=== PATIENT | female | born 1995 | race Caucasian/White ===

== ENCOUNTER 2021-04-21 19:05 | Inpatient (IN) | payer BC, SELFPAY ==
[2021-04-21 19:23] VITALS: BMI 38.5
[2021-04-21 19:42] VITALS: BP 131/85; PULSE 90; TEMP 36.8
[2021-04-21 19:43] VITALS: PULSE 96; O2SAT 98
[2021-04-21] MEDS: Lactated Ringers 1,000 ML 50 ML IV (19:45)
[2021-04-21] MEDS: 0.9% Normal Saline Single 100 ML IV.SOLN. INTRA-UTER (19:55)
--- NOTE | 2021-04-21 20:00 | PCM.HP.OB ---
HPI - General General Date of Admission: 04/21/21 HPI Narrative ALISHA GONZALEZ, is a 26 F who presents at 38weeks 6days for IOL due to obesity, GDMA1. Maternal Data Information RIVKA Calculator Estimated Delivery Date Method Current WG Current Estimate 04/29/21 Manual 38w 6d PFSH PFSH Home Medications vit [id number] [ One Daily] tab PO DAILY 04/21/21 [History Last Taken 04/20/21] Allergy/AdvReac Type Severity Reaction Status Date / Time cefaclor [From [facility]] Allergy Hives Verified 04/21/21 19:47 grass pollen AdvReac Anaphylaxis Verified 04/21/21 19:47 NST FHR Rate Baby A Baseline: 125 Variability:: Moderate Accelerations:: 15 x 15 Decelerations:: None FHR Category:: Category I Uterine Activity:: None ROS Constitutional Constitutional: Reports systems reviewed and no addt'l complaints, except as documented; Denies headache(s) Eyes Eyes: Denies acute decrease in peripheral vision, blurry vision or change in vision ENT HEENT: Reports systems reviewed and no addt'l complaints, except as documented Cardiovascular Cardiovascular: Denies chest pain or dizziness Respiratory/Chest Respiratory/Chest: Denies cough, dyspnea, dyspnea on exertion, shortness of breath at rest or shortness of breath with exertion Gastrointestinal Gastrointestinal: Denies abdominal pain, diarrhea, nausea or vomiting Genitourinary Genitourinary: Denies abdominal discomfort or movement Musculoskeletal Musculoskeletal: Denies limited range of motion Integumentary Integumentary: Reports systems reviewed and no addt'l complaints, except as documented Neurologic Neurologic: Reports systems reviewed and no addt'l complaints, except as documented Psychiatric Psychiatric: Reports systems reviewed and no addt'l complaints, except as documented Endocrine Endocrinology: Reports systems reviewed and no addt'l complaints, except as documented Hematologic/Lymphatic Hematologic/Lymphatic: Reports systems reviewed and no addt'l complaints, except as documented Allergic/Immunologic Allergic/Immunologic: Reports systems reviewed and no addt'l complaints, except as documented Vital Signs Vital Signs Vital Signs: 04/21/21 19:42 04/21/21 19:43 Pulse Rate 90 96 Blood Pressure 131/85 H BP Systolic 131 BP Diastolic 85 Pulse Ox 98 Weight Weight: 211 lb Body Mass Index (BMI) 38.5 Physical Exam Narrative Wylie catheter inserted transcervically without difficulty. 30ml NS instilled, Const alert and oriented x3 General Appearance: cooperative Orientation / Consciousness: awake, oriented to person, oriented to place and oriented to time Exam Limitations: no limitations HEENT normocephalic Head and Scalp: normal to inspection, normocephalic and atraumatic Face and Sinus: normal facial exam Eyes General Eye: normal appearance of both eyes Neck full ROM Chest Chest: symmetrical chest wall rise Resp normal respiratory effort and normal air movement Auscultation: clear to auscultation bilaterally Cardio regular rate, regular rhythm, S1 normal heart sound, S2 normal heart sound, no murmurs, no rub, no gallops and no clicks GI normal to inspection, nondistended, normoactive bowel sounds and non-tender appearance of the vagina normal Bladder / Kidney Exam: no CVA tenderness Manual OB Exam: estimated gestational size large (89th percentile at 33w1d), dilated 2cm, effaced 60% and station -2 Back/Spine normal ROM Extremity normal to inspection and full ROM Skin no rashes or lesions noted Neuro oriented x3, CN's II-XII intact bilaterally and moves all extremities Sensorium / Orientation: awake, alert and oriented to person Motor Exam: clonus absent Deep Tendon Reflexes: Rt Patellar (L4): 2+ and Lt Patellar (L4): 2+ Labs Labs Labs: No Data to Display GBS negative COVID negative on04/18/21 HBsAG negative HIV negative HepC negative Rubella immune RPR negative A positive, antibody screen negative Assessment & Plan (1) GDM, class A1: (2) Obesity affecting : COMMENT: US at 37w1d 94th percentile (3) History of marijuana use: (4) abnormality in : COMMENT: suspected MCDK/obstruction. plan of care coordination note. (5) History of depression: (6) Tobacco use affecting in first trimester, antepartum: (7) Encounter for induction of labor: PLAN: 1) Admit to labor and delivery 2) IV with routine labs 3) Diabetic protocol. US at 37w1d 94th percentile 4) Wylie with PO cytotec then pitocin per policy 5) Pain management 6) GBS negative 7) COVID negative 8) collaborative physician
[2021-04-21 20:05] LABS: Absolute Lymphocyte Count 1.74 X10^3/uL (0.83-4.51); Absolute Neutrophil Count 6.8 X10^3/uL (2.0-7.7); Basophil# 0.05 X10^3/uL; Basophil% 0.5 % (0-1); Hematocrit 38.3 % (37-47); Hemoglobin 13.6 g/dL (12.0-15.0); Lymphocyte # 1.74 X10^3/ul (0.83-4.51); Mean Corp Hgb Conc 35.5 g/dL (32-36); Mean Corpuscular Hgb 31.6 pg (27.0-32.0); Mean Corpuscular Volume 88.9 fL (81-99); Mean Platelet Vol. 11.4 fl (6.2-12.0); Monocyte# 0.74 X10^3/uL; Monocyte% 7.6 % (0-10); NRBC Flagged by Analyzer 0 % (0-5); Neutrophil # 6.83 X10^3/uL (2.7-7.7); Neutrophil % 70.6 % (47-70); Platelet Count 209 K/mm3 (150-450); RBC Distribution Width CV 12.4 % (11.6-14.6); RBC Distribution Width SD 40.2 fl (35.1-43.9); Red Blood Count 4.31 M/mm3 (4.2-5.4); White Blood Count 9.7 K/mm3 (4.4-11.0)
[2021-04-21 20:16] LABS: Amphetamine Urine VISTA NEGATIVE (<1000 ng/mL); Barbiturate Urine VISTA NEGATIVE (< 200 ng/mL); Benzodiazepine Urine VISTA NEGATIVE (< 200 ng/mL); Cocaine Urine VISTA NEGATIVE (< 300 ng/mL); Ecstacy Urine VISTA NEGATIVE (< 500 ng/mL); Methadone Urine VISTA NEGATIVE (< 300 ng/mL); PCP Urine VISTA NEGATIVE (< 25 ng/mL); THC Urine VISTA NEGATIVE (< 50 ng/mL); Vista UDS pH Range 6
[2021-04-21] MEDS: miSOPROStol 25 MCG TABLET PO (20:44)
[2021-04-21 20:52] VITALS: TEMP 37
[2021-04-21 20:53] VITALS: BP 138/78; PULSE 84
[2021-04-21 21:41] LABS: Bedside Glucose 82 mg/dL (70-110)
[2021-04-21 21:46] LABS: Bedside Glucose 81 mg/dL (70-110)
[2021-04-21] MEDS: Lactated Ringers 500 ML 999 ML IV (21:55)
[2021-04-21 23:32] VITALS: PULSE 81; O2SAT 98
[2021-04-22] VITALS (57 sets, daily range): BP systolic 103–155; BP diastolic 56–96; PULSE 63–94; TEMP 36.4–37.7; O2SAT 79–100
[2021-04-22] MEDS: Oxytocin 30 units/NS 500 ml 30 UNITS/500 ML IV.SOLN IV (00:47)
[2021-04-22 00:56] LABS: Bedside Glucose 75 mg/dL (70-110)
[2021-04-22] MEDS: Lactated Ringers 500 ML 999 ML IV ×3 (02:07→18:38)
[2021-04-22] MEDS: fentaNYL-bupivacaine (epidural) 100 ML BAG EPIDURAL ×5 (04:12→21:25)
[2021-04-22] MEDS: 0.9% Saline Lock 10 ML Syringe IV (04:16)
[2021-04-22] MEDS: Ondansetron 4 MG/2 ML Vial IV ×2 (04:16→13:08)
[2021-04-22 04:26] LABS: Bedside Glucose 93 mg/dL (70-110)
[2021-04-22] MEDS: Lactated Ringers 1,000 ML 200 ML IV ×4 (05:09→21:25)
--- NOTE | 2021-04-22 08:30 | PN.OBGYN_ITS ---
Subjective Subjective Patient seen at bedside. Comfortable with epidural. Denies any pain. Objective Data Objective Data Vital Signs: Vital Signs Temp Pulse BP Pulse Ox 98.6 F 72 103/70 100 04/22/21 07:26 04/22/21 07:22 04/22/21 07:22 04/22/21 07:22 Weight: 211 lb Body Mass Index (BMI) 38.5 Intake & Output: Intake and Output for Last 24 Hours 04/20/21 04/21/21 04/22/21 23:59 23:59 23:59 Intake Total 648.33 / 648.33 1157.65 / 1157.65 Balance 648.33 / 648.33 1157.65 / 1157.65 Lab / Micro Data Result Diagrams: 04/21/21 19:45 Labs: Laboratory Results - last 24 hr 04/21/21 19:45: WBC 9.7, RBC 4.31, Hgb 13.6, Hct 38.3, MCV 88.9, MCH 31.6, MCHC 35.5, RDW Std Deviation 40.2, RDW Coeff of Domonique 12.4, Plt Count 209, MPV 11.4, Immature Gran % (Auto) 2.300 H, Neut % (Auto) 70.6 H, Lymph % (Auto) 18.0 L, [place] % (Auto) 7.6, Eos % (Auto) 1.0, Baso % (Auto) 0.5, Absolute Neuts (auto) 6.8, Absolute Lymphs (auto) 1.74, Nucleated RBC % 0 04/21/21 19:45: Blood Type A POSITIVE, Antibody Screen NEGATIVE 04/21/21 20:00: Urine Opiates Screen NEGATIVE, Urine Methadone Screen NEGATIVE, Ur Barbiturates Screen NEGATIVE, Ur Phencyclidine Scrn NEGATIVE, Ur Amphetamines Screen NEGATIVE, U Methamphetamin-MDMA NEGATIVE, U Benzodiazepines Scrn NEGATIVE, Urine Cocaine Screen NEGATIVE, U Cannabinoids Screen NEGATIVE, Ur Drug Screen Comment 04/21/21 20:10: POC Glucose 82 04/21/21 21:39: POC Glucose 81 04/22/21 00:49: POC Glucose 75 04/22/21 04:08: POC Glucose 93 ROS Eyes Eyes: Denies blurry vision, change in vision or spots in vision ENT HEENT: Denies dizziness or headache(s) Cardiovascular Cardiovascular: Denies abdominal pain, chest pain or dyspnea Respiratory/Chest Respiratory/Chest: Denies cough, dyspnea, shortness of breath at rest or shortness of breath with exertion Gastrointestinal Gastrointestinal: Denies abdominal pain, diarrhea or vomiting Genitourinary Genitourinary: Denies change in urinary stream, difficulty urinating or dysuria Musculoskeletal Musculoskeletal: Reports none Integumentary Integumentary: Denies rash Neurologic Neurologic: Denies dizziness, headache(s), memory loss or weakness Physical Exam Const alert and no apparent distress General Appearance: cooperative and comfortable Exam Limitations: no limitations HEENT normocephalic Eyes General Eye: normal appearance of both eyes Neck full ROM General: normal visual inspection Chest Chest: symmetrical chest wall rise Resp normal respiratory effort and normal air movement Effort and Inspection: symmetric chest movement Auscultation: clear to auscultation bilaterally Cardio regular rate and regular rhythm GI normal to inspection, nondistended, normoactive bowel sounds Back/Spine normal ROM Extremity full ROM and no calf tenderness General Extremity: normal exam except as noted Skin no rashes or lesions noted Neuro CN's II-XII intact bilaterally Psych mental status grossly normal NST FHR Rate Baby A Baseline: 120 Variability:: Moderate Accelerations:: 15 x 15 Decelerations:: None NST Reactive:: Yes FHR Category:: Category I Uterine Activity:: 3-5 Assessment & Plan (1) GDM, class A1: (2) Obesity affecting : QUALIFIERS: Trimester: third trimester Qualified Code(s): O99.213 - Obesity complicating , third trimester COMMENT: US at 37w1d 94th percentile (3) Encounter for induction of labor: (4) History of marijuana use: (5) abnormality in : QUALIFIERS: Fetus number: single or unspecified fetus Qualified Code(s): O35.9XX0 - Maternal care for (suspected) abnormality and damage, unspecified, not applicable or unspecified COMMENT: suspected MCDK/obstruction. plan of care coordination note. (6) History of depression: (7) Tobacco use affecting in first trimester, antepartum: PLAN: Cat. 1 tracing- NST reactive Pitocin 4mu/min- continue to increase per policy CE= 4.5/70/-2 AROM for clear fluid IUPC placed without difficulty Blood glucose levels within normal ranges Anticipate Dr. Morales updated and is collaborating physician
[2021-04-22 08:55] LABS: Bedside Glucose 73 mg/dL (70-110)
[2021-04-22 12:06] LABS: Bedside Glucose 69 mg/dL (70-110)
[2021-04-22 13:11] LABS: Bedside Glucose 78 mg/dL (70-110)
[2021-04-22 16:25] LABS: Bedside Glucose 72 mg/dL (70-110)
[2021-04-22 17:30] LABS: Bedside Glucose 67 mg/dL (70-110)
--- NOTE | 2021-04-22 17:59 | PCM.PN.OB ---
Subjective Subjective Patient remains comfortable with epidural. Occasional pressure with peak of contractions. Objective Data Objective Data Vital Signs: Vital Signs Temp Pulse BP Pulse Ox 99.8 F H 75 120/73 98 04/22/21 16:18 04/22/21 17:13 04/22/21 17:13 04/22/21 13:30 Weight: 211 lb Body Mass Index (BMI) 38.5 Intake & Output: Intake and Output for Last 24 Hours 04/20/21 04/21/21 04/22/21 23:59 23:59 23:59 Intake Total 648.33 / 648.33 3213.55 / 3213.55 Output Total 800 / 800 Balance 648.33 / 648.33 2413.55 / 2413.55 Lab / Micro Data Result Diagrams: 04/21/21 19:45 Labs: Laboratory Results - last 24 hr 04/21/21 19:45: WBC 9.7, RBC 4.31, Hgb 13.6, Hct 38.3, MCV 88.9, MCH 31.6, MCHC 35.5, RDW Std Deviation 40.2, RDW Coeff of Domonique 12.4, Plt Count 209, MPV 11.4, Immature Gran % (Auto) 2.300 H, Neut % (Auto) 70.6 H, Lymph % (Auto) 18.0 L, [place] % (Auto) 7.6, Eos % (Auto) 1.0, Baso % (Auto) 0.5, Absolute Neuts (auto) 6.8, Absolute Lymphs (auto) 1.74, Nucleated RBC % 0 04/21/21 19:45: Blood Type A POSITIVE, Antibody Screen NEGATIVE 04/21/21 20:00: Urine Opiates Screen NEGATIVE, Urine Methadone Screen NEGATIVE, Ur Barbiturates Screen NEGATIVE, Ur Phencyclidine Scrn NEGATIVE, Ur Amphetamines Screen NEGATIVE, U Methamphetamin-MDMA NEGATIVE, U Benzodiazepines Scrn NEGATIVE, Urine Cocaine Screen NEGATIVE, U Cannabinoids Screen NEGATIVE, Ur Drug Screen Comment 04/21/21 20:10: POC Glucose 82 04/21/21 21:39: POC Glucose 81 04/22/21 00:49: POC Glucose 75 04/22/21 04:08: POC Glucose 93 04/22/21 08:01: POC Glucose 73 04/22/21 12:00: POC Glucose 69 L 04/22/21 13:03: POC Glucose 78 04/22/21 16:04: POC Glucose 72 04/22/21 17:06: POC Glucose 67 L ROS Eyes Eyes: Denies blurry vision Cardiovascular Cardiovascular: Reports none; Denies chest pain at rest, chest pain with activity or dizziness Respiratory/Chest Respiratory/Chest: Denies cough or dyspnea Gastrointestinal Gastrointestinal: Reports none and other; Denies diarrhea or vomiting Genitourinary Genitourinary: Reports dysuria and other Details: Wylie catheter in place Musculoskeletal Musculoskeletal: Reports none Integumentary Integumentary: Reports none; Denies rash Neurologic Neurologic: Denies dizziness, headache(s) or other visual disturbances Psychiatric Psychiatric: Reports none Physical Exam Const alert and no apparent distress General Appearance: cooperative and comfortable Exam Limitations: no limitations HEENT normocephalic Eyes General Eye: normal appearance of both eyes Neck full ROM General: normal visual inspection Chest Chest: symmetrical chest wall rise Resp normal respiratory effort and normal air movement Effort and Inspection: symmetric chest movement Auscultation: clear to auscultation bilaterally Cardio regular rate and regular rhythm GI normal to inspection, nondistended, normoactive bowel sounds Back/Spine normal ROM Extremity full ROM and no calf tenderness General Extremity: normal exam except as noted Skin no rashes or lesions noted Neuro CN's II-XII intact bilaterally Psych mental status grossly normal NST FHR Rate Baby A Baseline: 135 Variability:: Moderate Accelerations:: 15 x 15 Decelerations:: None NST Reactive:: Yes FHR Category:: Category I Uterine Activity:: 2-4 palpate moderate and relaxed in between Assessment & Plan (1) GDM, class A1: (2) Obesity affecting : QUALIFIERS: Trimester: third trimester Qualified Code(s): O99.213 - Obesity complicating , third trimester COMMENT: US at 37w1d 94th percentile (3) Encounter for induction of labor: (4) Artificial rupture of membranes antepartum: PLAN: Cat. 1 tracing- NST reactive Pitocin at 10 mu/ min- continue to increase per policy CE- 6.5/80/-[address] Blood glucose levels within normal ranges Continue present plan of care- anticipate Dr. Morales updated and is collaborating physician
[2021-04-22 18:15] LABS: Bedside Glucose 86 mg/dL (70-110)
[2021-04-22 19:11] LABS: Bedside Glucose 72 mg/dL (70-110)
[2021-04-22 20:21] LABS: Bedside Glucose 86 mg/dL (70-110)
[2021-04-22 22:20] LABS: Bedside Glucose 92 mg/dL (70-110)
[2021-04-22 22:20] LABS: Bedside Glucose 78 mg/dL (70-110)
[2021-04-22 23:35] LABS: Bedside Glucose 86 mg/dL (70-110)
[2021-04-23] VITALS (22 sets, daily range): BP systolic 103–140; BP diastolic 54–89; PULSE 63–94; RESP 14–18; TEMP 36.2–37.8; O2SAT 94–100
[2021-04-23] MEDS: Lactated Ringers 500 ML 999 ML IV (00:06)
[2021-04-23 00:10] LABS: Bedside Glucose 86 mg/dL (70-110)
[2021-04-23 02:01] LABS: Bedside Glucose 83 mg/dL (70-110)
[2021-04-23 02:31] LABS: Bedside Glucose 86 mg/dL (70-110)
[2021-04-23] MEDS: fentaNYL-bupivacaine (epidural) 100 ML BAG EPIDURAL (02:32)
--- NOTE | 2021-04-23 03:23 | PCM.PN.OB ---
Subjective Subjective Called to patient's room for assessment with pushing. Complete dilation at 2330. Started pushing 0033 at 0 station. Caput felt and +1 station with pushing. Head returns to 0 station in between pushes. Patient has been pushing for 3 hours and is fatigued. She has been pushing in several different position. Discussed option of continuation of pushing and will reevaluate in an hour or primary section. Patient requesting primary section at this time. Dr. Morales notified and in route to hospital. Objective Data Objective Data Vital Signs: Vital Signs Temp Pulse BP Pulse Ox 100.0 F H 76 119/74 100 04/23/21 02:01 04/23/21 02:02 04/23/21 02:01 04/23/21 02:02 Weight: 211 lb Body Mass Index (BMI) 38.5 Intake & Output: Intake and Output for Last 24 Hours 04/21/21 04/22/21 04/23/21 23:59 23:59 23:59 Intake Total 648.33 / 648.33 5294.59 / 5294.59 1036.67 / 1036.67 Output Total 1400 / 1400 Balance 648.33 / 648.33 3894.59 / 3894.59 1036.67 / 1036.67 Lab / Micro Data Result Diagrams: 04/21/21 19:45 Labs: Laboratory Results - last 24 hr 04/22/21 04:08: POC Glucose 93 04/22/21 08:01: POC Glucose 73 04/22/21 12:00: POC Glucose 69 L 04/22/21 13:03: POC Glucose 78 04/22/21 16:04: POC Glucose 72 04/22/21 17:06: POC Glucose 67 L 04/22/21 18:02: POC Glucose 86 04/22/21 19:01: POC Glucose 72 04/22/21 20:12: POC Glucose 86 04/22/21 20:58: POC Glucose 78 04/22/21 21:56: POC Glucose 92 04/22/21 23:22: POC Glucose 86 04/23/21 00:07: POC Glucose 86 04/23/21 01:11: POC Glucose 83 04/23/21 02:05: POC Glucose 86 ROS Eyes Eyes: Denies blurry vision, change in vision or spots in vision ENT HEENT: Denies dizziness or headache(s) Cardiovascular Cardiovascular: Denies abdominal pain, chest pain or dyspnea Respiratory/Chest Respiratory/Chest: Denies cough, dyspnea, shortness of breath at rest or shortness of breath with exertion Gastrointestinal Gastrointestinal: Denies abdominal pain, diarrhea or vomiting Neurologic Neurologic: Denies dizziness, headache(s), memory loss or weakness Assessment & Plan (1) GDM, class A1: (2) Artificial rupture of membranes antepartum: (3) Obesity affecting : QUALIFIERS: Trimester: third trimester Qualified Code(s): O99.213 - Obesity complicating , third trimester COMMENT: US at 37w1d 94th percentile (4) Encounter for induction of labor: (5) Fatigue: QUALIFIERS: Fatigue type: unspecified Qualified Code(s): R53.83 - Other fatigue PLAN: Minimal descent after 3 hours of pushing Caput present Maternal fatigue Requesting primary C/S
[2021-04-23] MEDS: Sodium Citrate/Citric Acid 30 ML UDC PO (03:40)
[2021-04-23 03:41] LABS: Bedside Glucose 84 mg/dL (70-110)
[2021-04-23] MEDS: Cefazolin 2 GM in 0.9% Normal Saline 100 ML IV ×2 (03:48→09:42)
--- NOTE | 2021-04-23 05:18 | OP.PCM_ITS ---
Problems Associated Problem List Diagnoses (1) 39 weeks gestation of : (2) GDM, class A1: (3) Obesity affecting : (4) History of marijuana use: (5) abnormality in : (6) History of depression: (7) Tobacco use affecting in first trimester, antepartum: (8) Encounter for induction of labor: (9) Arrest of descent, delivered, current hospitalization: Report of Operation Date of Procedure: 04/23/21 Pre-Operative Diagnosis: 39 week gestation, A1GDM, arrest of descent after induction of labor Post-Operative Diagnosis: As above Surgery/Procedure Performed:: Primary section with low transverse incision on the uterus Description of Surgical Findings:: Normal-appearing uterus and bilateral adnexa. Normal-appearing placenta with three-vessel cord. Viable male with Apgars of 8 and 9. Surgeon: Rehana Morales manager e commerce: Mallika Type of Anesthesia: Epidural Special Medications: Ketamine Methergine Specimen's removed: Placenta Drains: Wylie Estimated Blood Loss (mL): 700 Fluids Replaced: 1000 mL Description of Procedure: Indications: The patient presented for a scheduled in duction of labor at 39 weeks for gestational diabetes and obesity in . She progressed slowly throughout the induction process but did make it to complete. She was pushing for a total of 3 h. Initially with pushing there was good maternal effort and progress being made. Towards the end of the pushing arrest of descent was noted and there was no change in station with good maternal effort. section was discussed for arrest of descent and the patient desired to proceed after discussion of risk, benefits, alternatives. Patient asked about tubal sterilization. Discussed that sterilization is permanent and irreversible, and that she needs to be 100% certain that she no longer desires pregnancies in the future. Discussed risk of regret. She will consider a long-acting but reversible form of contraception, and schedule a tubal ligation as an outpatient if she desires 1. Procedure: She was taken to the operating room where she was prepped and draped in the dorsal position with a leftward tilt. A Pfannenstiel skin incision was made using a scalpel, and this was carried down to the underlying layer of fascia. The fascia was incised in midline. The fascial incision was extended laterally using Stanley scissors. The fascia was dissected off the rectus muscles using a combination of sharp and blunt dissection. The rectus muscles were in the midline. The peritoneum was entered sharply with good visualization of the bladder. The incision was extended bluntly. A low transverse incision was made on the uterus with a scalpel. A nurse provided a vaginal hand from below to assist with elevation of the infant's head. The infant's head was brought to the hysterotomy in a flexed position. The head, followed by the shoulders, followed by the body of the infant were delivered without any force or delay. The cord was clamped and cut immediately. The was handed off to the awaiting nursery staff. The uterus was cleared of all clot and debris. Uterus was exteriorized and noted to be boggy after Pitocin. 1 dose of Methergine was given. The uterine incision was closed in a running locked fashion with Vicryl. The uterine incision was extended laterally both along the patient's left and right sides into the cervix. These cervical extensions were closed with Vicryl in a running locked fashion. Several additional [id number] sutures were placed for hemostasis. Normal adnexa were noted. The patient then had several rounds of emesis. At this point the patient's pain control was not adequate with the epidural. She was given k etamine for further pain control. The uterus was placed back into the abdomen. Again hemostasis was noted. FloSeal was placed along the extensions and corners of the hysterotomy. The peritoneum was closed in a running fashion with Vicryl. The fascia was closed in a running fashion with strata fix. The subcutaneous space was irrigated and made hemostatic with Bovie cautery. Subcutaneous space was reapproximated with 3-0 Vicryl. The skin was closed with Monocryl in a subcuticular fashion. A dressing was placed. Instrument, sponge, needle counts were correct. The patient was taken recovery room in stable condition. The assistant activities director Mallika LAIRD helped with the entire surgery from start to finish: she helped with prepping the patient, delivery of , and closure. Grafts/Implants Used: None Complications None Admit VTE Documentation VTE Present on Admission: No VTE Mechan Device Prophylaxis: SCD's
[2021-04-23] MEDS: Oxytocin 30 units/NS 500 ml 30 UNITS/500 ML IV.SOLN 167 UNITS IV (05:43)
[2021-04-23] MEDS: Ketorolac 30 MG/ML Syringe IV ×4 (06:58→23:51)
[2021-04-23] MEDS: Acetaminophen 500 MG Tablet 1000 MG PO ×4 (06:58→23:51)
[2021-04-23 07:21] LABS: Bedside Glucose 108 mg/dL (70-110)
[2021-04-23] MEDS: Lactated Ringers 1,000 ML 100 ML IV (09:04)
[2021-04-23] MEDS: Senna/Docusate Sodium 1 Tablet PO (09:46)
[2021-04-23] MEDS: 0.9% Saline Lock 10 ML Syringe IV ×3 (12:25→23:52)
[2021-04-24 05:22] VITALS: BP 129/90; PULSE 75; RESP 16; TEMP 36.4; O2SAT 98
[2021-04-24] MEDS: Acetaminophen 500 MG Tablet 1000 MG PO ×3 (06:34→18:33)
[2021-04-24 06:49] LABS: Hematocrit 31.7 % (37-47); Hemoglobin 11.1 g/dL (12.0-15.0); Mean Corpuscular Hgb 32.3 pg (27.0-32.0); Mean Corpuscular Volume 92.2 fL (81-99); Mean Platelet Vol. 11.1 fl (6.2-12.0); Platelet Count 158 K/mm3 (150-450); RBC Distribution Width CV 12.7 % (11.6-14.6); Red Blood Count 3.44 M/mm3 (4.2-5.4)
[2021-04-24 06:51] LABS: Bedside Glucose 93 mg/dL (70-110)
--- NOTE | 2021-04-24 08:21 | PN.OBGYN_ITS ---
Subjective Subjective Doing well per patient and nursing staff. Ambulating and taking PO without difficulty. Voiding and passing flatus. Pain controlled. , services for assistance. Denies headache, visual changes, chest pain, shortness of breath, leg pain or increased bleeding. Lochia normal. Objective Data Objective Data Vital Signs: Vital Signs Temp Pulse Resp BP Pulse Ox 97.6 F L 75 16 129/90 H 98 04/24/21 05:22 04/24/21 05:22 04/24/21 05:22 04/24/21 05:22 04/24/21 05:22 Oxygen Delivery Method Room Air Weight: 211 lb Body Mass Index (BMI) 38.5 Intake & Output: Intake and Output for Last 24 Hours 04/22/21 04/23/21 04/24/21 23:59 23:59 23:59 Intake Total 5294.59 / 5294.59 2754.00 / 2754.00 Output Total 1400 / 1400 2200 / 2200 Balance 3894.59 / 3894.59 554.00 / 554.00 Lab / Micro Data Result Diagrams: 04/24/21 06:40 Labs: Laboratory Results - last 24 hr 04/24/21 06:37: POC Glucose 93 04/24/21 06:40: WBC 17.0 H, RBC 3.44 L, Hgb 11.1 L, Hct 31.7 L, MCV 92.2, MCH 32.3 H, MCHC 35.0, RDW Std Deviation 42.0, RDW Coeff of Domonique 12.7, Plt Count 158, MPV 11.1 ROS Constitutional Constitutional: Reports systems reviewed and no addt'l complaints, except as documented; Denies headache(s) Eyes Eyes: Denies acute decrease in peripheral vision, blurry vision or change in vision ENT HEENT: Reports systems reviewed and no addt'l complaints, except as documented Cardiovascular Cardiovascular: Denies chest pain or dizziness Respiratory/Chest Respiratory/Chest: Denies cough, dyspnea, dyspnea on exertion, shortness of breath at rest or shortness of breath with exertion Gastrointestinal Gastrointestinal: Denies abdominal pain, diarrhea, nausea or vomiting Genitourinary Genitourinary: Denies abdominal discomfort Musculoskeletal Musculoskeletal: Denies limited range of motion Integumentary Integumentary: Reports systems reviewed and no addt'l complaints, except as documented Neurologic Neurologic: Reports systems reviewed and no addt'l complaints, except as documented Psychiatric Psychiatric: Reports systems reviewed and no addt'l complaints, except as d ocumented Endocrine Endocrinology: Reports systems reviewed and no addt'l complaints, except as documented Hematologic/Lymphatic Hematologic/Lymphatic: Reports systems reviewed and no addt'l complaints, except as documented Allergic/Immunologic Allergic/Immunologic: Reports systems reviewed and no addt'l complaints, except as documented Physical Exam Const alert and oriented x3 General Appearance: cooperative Orientation / Consciousness: awake, oriented to person, oriented to place and oriented to time Exam Limitations: no limitations HEENT normocephalic Head and Scalp: normal to inspection, normocephalic and atraumatic Face and Sinus: normal facial exam Eyes General Eye: normal appearance of both eyes Neck full ROM Chest Chest: symmetrical chest wall rise Resp normal respiratory effort and normal air movement Auscultation: clear to auscultation bilaterally Cardio regular rate, regular rhythm, S1 normal heart sound, S2 normal heart sound, no murmurs, no rub, no gallops and no clicks GI normal to inspection, nondistended, normoactive bowel sounds and non-tender GI Narrative: Fundus firm 2 below U. Dressing dry and intact. appearance of the vagina normal Bladder / Kidney Exam: no CVA tenderness Back/Spine normal ROM Extremity normal to inspection and full ROM Skin no rashes or lesions noted Neuro oriented x3, CN's II-XII intact bilaterally and moves all extremities Sensorium / Orientation: awake, alert and oriented to person Motor Exam: clonus absent Deep Tendon Reflexes: Rt Patellar (L4): 2+ and Lt Patellar (L4): 2+ Assessment & Plan (1) History of depression: (2) Arrest of descent, delivered, current hospitalization: (3) 39 weeks gestation of : PLAN: 1) Routine care 2) Pain management 3) Bottle feeding 4) Vitals stable 5) Planning D/C home tomorrow 6) I&Os stable
[2021-04-24 09:00] VITALS: BP 118/73; PULSE 71; RESP 18; TEMP 36.7; O2SAT 98
[2021-04-24] MEDS: Senna/Docusate Sodium 1 Tablet PO (09:48)
[2021-04-24] MEDS: Ibuprofen 600 MG Tablet PO ×3 (09:48→22:13)
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
[2021-04-24 20:29] VITALS: BP 107/65; PULSE 72; RESP 16; TEMP 36.6
[2021-04-25] MEDS: Acetaminophen 500 MG Tablet 1000 MG PO ×3 (01:16→13:01)
[2021-04-25 01:30] VITALS: BP 124/86; PULSE 77; RESP 14; TEMP 36.1
[2021-04-25] MEDS: Ibuprofen 600 MG Tablet PO ×2 (03:43→10:25)
--- NOTE | 2021-04-25 08:49 | PCM.DC ---
Discharge Instructions Diet Discharge Diet: No restrictions Activity Discharge Activity: May Not Drive (Until you are no longer taking pain medication, and until you feel you can slam on a car brake and turn a steering wheel sharply) and May Shower May resume sexual activity in: 6 weeks Ice area for (Minutes): 15 Weight Bearing Status: Weight bearing as tolerated Lifting Restrictions: Nothing heavier than baby Dressing / Incision Call your doctor if your incision/area has: Sudden Increased Bleeding, Increased Pain/ Swelling, Increased Redness, Foul Smelling Discharge and Swelling at the incision site Call your doctor if you observe: Fever of 101 or Higher, Coldness, Increased Pain, Numbness or Tingling, Change in Color, Inability to urinate, Inability to have a bowel movement, Using more than 1 pad per hour, Shortness of breath, Dizziness, Fainting spells, Swelling in the ankles, Chest pain, Increased palpitations (irregular heartbeat), Calf discomfort and Uncontrolled pain Suture Line Care: Avoid Pulling/Pushing and Avoid Pinching/Bending Remove Dressing in: leave in place till F/U Cleanse incision/area with: Soap & Water (If dressing gets saturated with water ok to remove in shower before your appointment) Follow Up Care Please Follow Up With: Andrew When: 1 week for incision check 6 weeks for visit Test Results: Test results from this visit will be discussed in further detail at your follow-up appointment, if applicable. Discharge Plan Admission Admit Date/Time: 04/21/21 19:05 Primary Reason for Your Visit: Delivery Attending Provider: Rehana Morales Primary Care Provider: Care Physician,Tere Primary Instructions Patient Instructions: After a Discharge Orders/Prescriptions Prescriptions: New oxycodone-acetaminophen [Percocet] 5-325 mg tablet 1 tab PO Q6H PRN (Reason: pain) 7 Days Qty: 10 RF: 0 ibuprofen 600 mg tablet 600 mg PO Q6H PRN (Reason: pain) Qty: 30 RF: 0 docusate sodium [Colace] 100 mg capsule 100 mg PO BID PRN (Reason: constipation) Qty: 30 RF: 0 Continued One Daily 27 mg iron- 800 mcg Tablet PO DAILY RF: 0 Referrals / Follow Up: Care Physician,No Primary [Primary Care Provider] - Disposition Disposition (needs filled in before D/C Order can be placed): Home, Self Care
--- NOTE | 2021-04-25 08:54 | PCM.PN.OB ---
Subjective Subjective Pt doing well. Ambulating and voiding without difficulty. Yoli reg diet without N/V. Lochia normal. No CP, SOB, dizziness, leg pain. Desires discharge today Objective Data Objective Data Vital Signs: Vital Signs Temp Pulse Resp BP Pulse Ox 97 F L 77 14 124/86 H 98 04/25/21 01:30 04/25/21 01:30 04/25/21 01:30 04/25/21 01:30 04/24/21 09:00 Oxygen Delivery Method Room Air Weight: 211 lb Body Mass Index (BMI) 38.5 Intake & Output: Intake and Output for Last 24 Hours 04/23/21 04/24/21 04/25/21 23:59 23:59 23:59 Intake Total 2754.00 / 2754.00 Output Total 2200 / 2200 Balance 554.00 / 554.00 Lab / Micro Data Result Diagrams: 04/24/21 06:40 Physical Exam Const alert and no apparent distress General Appearance: comfortable HEENT normocephalic Resp normal respiratory effort GI soft to palpation and non-distended GI Narrative: ATTP, dressing c/d/i Extremity no calf tenderness Assessment & Plan (1) Delivery by section: PLAN: POD#2 s/p C/S doing well. Meeting milestones for discharge and instructions reviewed. D/c home with follow up in office in 1 week (2) GDM, class A1: (3) History of depression: (4) Arrest of descent, delivered, current hospitalization: (5) Obesity affecting : QUALIFIERS: Trimester: third trimester Qualified Code(s): O99.213 - Obesity complicating , third trimester COMMENT: US at 37w1d 94th percentile (6) abnormality in : QUALIFIERS: Fetus number: single or unspecified fetus Qualified Code(s): O35.9XX0 - Maternal care for (suspected) abnormality and damage, unspecified, not applicable or unspecified COMMENT: suspected MCDK/obstruction. plan of care coordination note.
[2021-04-25 10:16] VITALS: BP 102/77; PULSE 63; RESP 16; TEMP 36.7; O2SAT 98
[2021-04-25] MEDS: Senna/Docusate Sodium 1 Tablet PO (10:26)
--- NOTE | 2021-04-25 14:35 | NURSING ---
This RN has reviewed and agrees with all charting by SN Clark
--- NOTE | 2021-04-29 08:10 | PCM.DC.SUM ---
Providers Date of Admission: 04/21/21 Date of Discharge: 04/25/21 Primary Care Physician: No Primary Care Phys Reason For Visit: PRIMARY C SECTION Diagnosis Discharge Diagnosis (1) Delivery by section: Status: Acute (2) GDM, class A1: Status: Acute Code(s): O24.410 - Gestational diabetes mellitus in , diet controlled (3) History of depression: Status: Acute Code(s): Z86.59 - Personal history of other mental and behavioral disorders (4) Arrest of descent, delivered, current hospitalization: Status: Acute Code(s): O62.1 - Secondary uterine inertia (5) Obesity affecting : Status: Acute Code(s): O99.210 - Obesity complicating , unspecified trimester Qualifiers: Trimester: third trimester Qualified Code(s): O99.213 - Obesity complicating , third trimester (6) abnormality in : Status: Acute Code(s): O35.9XX0 - Maternal care for (suspected) abnormality and damage, unspecified, not applicable or unspecified Qualifiers: Fetus number: single or unspecified fetus Qualified Code(s): O35.9XX0 - Maternal care for (suspected) abnormality and damage, unspecified, not applicable or unspecified Medications at Discharge Home Medications One Daily tab PO DAILY 04/21/21 docusate sodium [Colace] 100 mg PO BID PRN #30 cap 04/25/21 ibuprofen 600 mg PO Q6H PRN #30 tab 04/25/21 oxycodone-acetaminophen [Percocet] 1 tab PO Q6H PRN 7 Days #10 tab 04/25/21 Hospital Course Operations section Summary of Care Provided Hospital Course: Pt was admitted for scheduled IOL around 39 weeks for A1GDM and obesity in . She progressed to complete after almost 48 hours, and was pushing for about 3 hours with arrest of descent. She had a primary low transverse section for arrest of descent. Baby was over 8 lbs at . Post operative course was routine. She was ambulating, voiding, and tolerating a regular diet on day of discharge. Pain was controlled on day of discharge. She was instructed to follow up in the office 1 week from section. Weight / BMI Weight Weight: 211 lb Body Mass Index (BMI) 38.5 ABG / Lab / Microbiology Data Result Diagrams: 04/24/21 06:40 D/C Instructions Discharge Diet: No restrictions May resume sexual activity in: 6 weeks Ice area for (Minutes): 15 Weight Bearing Status: Weight bearing as tolerated Call your doctor if your incision/area has: Sudden Increased Bleeding, Increased Pain/ Swelling, Increased Redness, Foul Smelling Discharge and Swelling at the incision site Call your doctor if you observe: Fever of 101 or Higher, Coldness, Increased Pain, Numbness or Tingling, Change in Color, Inability to urinate, Inability to have a bowel movement, Using more than 1 pad per hour, Shortness of breath, Dizziness, Fainting spells, Swelling in the ankles, Chest pain, Increased palpitations (irregular heartbeat), Calf discomfort and Uncontrolled pain Suture Line Care: Avoid Pulling/Pushing and Avoid Pinching/Bending Cleanse incision/area with: Soap & Water (If dressing gets saturated with water ok to remove in shower before your appointment) Please Follow Up With: Andrew When: 1 week for incision check 6 weeks for visit Meaningful Use Info Meaningful Use Diagnoses (Choose all that apply): None applicable Discharge Plan Admission Admit Date/Time: 04/21/21 19:05 Primary Reason for Your Visit: Delivery Attending Provider: Rehana Morales Primary Care Provider: Care PhysicianTere Primary Instructions Patient Instructions: After a Discharge Orders/Prescriptions Prescriptions: New oxycodone-acetaminophen [Percocet] 5-325 mg tablet 1 tab PO Q6H PRN (Reason: pain) 7 Days Qty: 10 RF: 0 ibuprofen 600 mg tablet 600 mg PO Q6H PRN (Reason: pain) Qty: 30 RF: 0 docusate sodium [Colace] 100 mg capsule 100 mg PO BID PRN (Reason: constipation) Qty: 30 RF: 0 Continued One Daily 27 mg iron- 800 mcg Tablet PO DAILY RF: 0 Referrals / Follow Up: Care Physician,Tere Primary [Primary Care Provider] - Disposition Disposition (needs filled in before D/C Order can be placed): Home, Self Care
== END 2021-04-25 12:55 | disposition home or self-care (01) | DRG 788 ==
PROVIDERS: Advanced Practice Midwife; Admitting Provider Advanced Practice Midwife; Visit Provider Obstetrics & Gynecology
DX: O62.1 Secondary uterine inertia (principal); E66.9 Obesity, unspecified; O75.81 Maternal exhaustion complicating labor and delivery; O24.429 Gestational diabetes mellitus in childbirth, unspecified control; O35.9XX0 Maternal care for (suspected) fetal abnormality and damage, unspecified, not applicable or unspecified; O99.214 Obesity complicating childbirth; Z3A.39 39 weeks gestation of pregnancy; Z37.0 Single live birth; Z86.59 Personal history of other mental and behavioral disorders
CPT/HCPCS: 59025; 59050; 80307; 82962; 85025; 85027; 86850; 86900; 86901; 99218; 99406; J7120; A4216; G0378; J2405